=== PATIENT | female | born 2000 | race Caucasian/White ===

== ENCOUNTER 2024-12-22 13:15 | Emergency (ER) | payer MEDICAID ==
[~2024-12-22] VITALS: Ht 157.5 cm; Wt 69.0 kg
[2024-12-22 13:21] VITALS: O2SAT 100
[2024-12-22 14:26] LABS: BASOPHILS % 0.1 % (0.0-2.0); EOSINOPHILS % 2.3 % (0.0-5.0); HEMATOCRIT. 33.4 % (36.0-48.0); HEMOGLOBIN. 11.3 g/dL (12.0-16.0); LYMPHOCYTES % 16.8 % (20.0-50.0); MEAN PLATELET VOLUME 8.8 fl (7.4-10.4); MONOCYTES % 4.5 % (2.0-8.0); NEUTROPHILS % 76.3 % (40.0-76.0); PLATELET 263 x1000/uL (130-400); RED BLOOD CELL COUNT 3.68 mill/uL (4.2-5.4); RED CELL DISTRIBUTION WIDTH 14.0 % (11.6-14.6)
[2024-12-22 14:39] LABS: HCG SCREEN NEGATIVE
[2024-12-22 14:41] LABS: CREATININE 0.7 mg/dL (0.6-1.0); UREA NITROGEN BLOOD 11 mg/dL (9-23)
[2024-12-22 14:43] LABS: ASPARTATE AMINOTRANSFERASE 19 IU/L (<34); BILIRUBIN DIRECT 0.4 mg/dL (<=3.0); BILIRUBIN TOTAL 1.4 mg/dL (0.1-1.0); PROTEIN TOTAL 7.0 g/dL (6.0-8.3)
[2024-12-22] MEDS ORDERED: LACT1CAP78 MT (14:56)
[2024-12-22] MEDS ORDERED: CIPR-263 MT (14:56)
[2024-12-22] MEDS ORDERED: LOPE1TAB46 MT (14:57)
[2024-12-22 15:45] VITALS: BP 118/64; PULSE 62; RESP 12; TEMP 36.7; O2SAT 100
== END 2024-12-22 15:47 | disposition home or self-care (01) ==
LOC: ER 13:15
DX: R19.7 Diarrhea, unspecified (principal); Z79.899 Other long term (current) drug therapy
CPT/HCPCS: 36415; 74176; 80048; 80076; 81025; 84703; 85025; 99284